=== PATIENT | male | born 1945 | race Caucasian/White ===

== ENCOUNTER 2020-12-23 15:03 | Emergency (ER) | payer BC, MEDICARE ==
[~2020-12-23] VITALS: Ht 162.6 cm; Wt 79.4 kg
[~2020-12-23 15:03] MED LIST: AMLODIPINE BESYL5 MG PO; FLORINEF ACETA0.1 MG; OMEPRAZOLE40 MG PO
== END 2020-12-23 18:26 | disposition home or self-care (01) ==
LOC: FSED 15:56
DX: S00.83XA Contusion of other part of head, initial encounter (principal); E78.5 Hyperlipidemia, unspecified; K21.9 Gastro-esophageal reflux disease without esophagitis; D64.9 Anemia, unspecified; F32.9 Major depressive disorder, single episode, unspecified
CPT/HCPCS: 70450; 99284

== ENCOUNTER 2024-11-18 09:08 | Emergency (ER) | payer MEDICARE ==
[~2024-11-18] VITALS: Ht 162.6 cm; Wt 85.4 kg
[2024-11-18] MEDS ORDERED: FERROUS SULFAT325 MG PO (09:24)
[2024-11-18] MEDS ORDERED: SERTRALINE HCL100 MG PO (09:24)
[2024-11-18] MEDS ORDERED: ROSUVASTATIN CA20 MG (09:24)
[2024-11-18] MEDS ORDERED: TRAZODONE HCL100 MG PO (09:24)
[2024-11-18] MEDS ORDERED: MELATONIN3 MG PO (09:24)
[2024-11-18] MEDS ORDERED: CENTRUM SILVER1 EAC7 (09:24)
[2024-11-18] MEDS ORDERED: LEVETIRACETAM500 MG PO (09:24)
[2024-11-18] MEDS ORDERED: DIPHTH,PERTUSS(ACELL),TET VAC 0.5 ML SYRINGE IM ONE (09:30)
[2024-11-18] MEDS: DIPHTH,PERTUSS(ACELL),TET VAC 0.5 ML SYRINGE IM ONE ×2 (09:41→09:49)
[2024-11-18] MEDS ORDERED: TETANUS/DIPHTHERIA TOX ADULT 0.5 ML SYR IM ONE (09:45)
[2024-11-18 10:46] VITALS: PULSE 71; RESP 18; TEMP 98.2; O2SAT 96
== END 2024-11-18 10:51 | disposition home or self-care (01) ==
LOC: FSED 09:14
DX: S61.411A Laceration without foreign body of right hand, initial encounter (principal); S00.83XA Contusion of other part of head, initial encounter; S63.286A Dislocation of proximal interphalangeal joint of right little finger, initial encounter; W17.89XA Other fall from one level to another, initial encounter; Y93.01 Activity, walking, marching and hiking; Y92.89 Other specified places as the place of occurrence of the external cause; G40.909 Epilepsy, unspecified, not intractable, without status epilepticus; D64.9 Anemia, unspecified; E78.5 Hyperlipidemia, unspecified; K21.9 Gastro-esophageal reflux disease without esophagitis; F32.A Depression, unspecified
CPT/HCPCS: 70450; 70486; 90471; 96372; 99284